=== PATIENT | female | born 1950 | race Caucasian/White ===

== ENCOUNTER → 2018-08-01 14:00 | Outpatient (CLI) | payer MEDICARE, SELFPAY ==
--- NOTE | 2018-08-01 | DI.MG.S_ITS ---
BILATERAL DIGITAL SCREENING MAMMOGRAM 3D/2D WITH CAD: 08/01/2018 CLINICAL: Routine screening. Family history of breast cancer. Comparison is made to exams dated: 07/23/2017 mammogram, 06/26/2016 mammogram, and 05/04/2015 mammogram - [facility]. The tissue of both breasts is heterogeneously dense. This may lower the sensitivity of mammography. Current study was also evaluated with a Computer Aided Detection (CAD) system. No significant masses, calcifications, or other findings are seen in either breast. There has been no significant interval change. IMPRESSION: NEGATIVE There is no mammographic evidence of malignancy. A 1 year screening mammogram is recommended. This exam was interpreted at Station ID: [id number]. NOTE: For mammograms, a report in lay terms will be sent to the patient. Approximately 15% of breast malignancies will not be visualized mammographically. In the management of a palpable breast mass, a negative mammogram must not discourage biopsy of a clinically suspicious lesion. Electronically Signed By: Marsha cordero/denis:08/01/2018 15:43:27 letter sent: Normal Exam ACR BI-RADS Category 1: Negative 3341F
== END ==
PROVIDERS: PCP Family Medicine; Visit Provider Family Medicine
DX: Z12.31 Encounter for screening mammogram for malignant neoplasm of breast (principal); Z80.3 Family history of malignant neoplasm of breast
CPT/HCPCS: 77063; 77067

== ENCOUNTER → 2018-12-10 08:37 | Outpatient (CLI) | payer MEDICARE, SELFPAY ==
[2018-12-10 09:46] LABS: Add Manual Diff / Slide Review NO; Basophils Absolute Auto 0 /uL (0-100); Basophils Percent Auto 1.3 % (0-2); Eosinophils Absolute Auto 100 /uL (0-450); Hematocrit 40.4 % (36-46); Hemoglobin 13.5 g/dL (12.0-16.0); Lymphocytes Absolute Auto 1200 /uL (1100-4500); Lymphocytes Percent Auto 36.1 % (25-40); Mean Corpuscular HGB Conc 33.3 % (30-36); Mean Corpuscular Hemoglobin 30.1 PG (26-34); Mean Corpuscular Volume 90.3 fL (80-100); Monocytes Absolute Auto 300 /uL (0-900); Neutrophils Absolute Auto 1700 /uL (1500-7000); Neutrophils Percent Auto 50.6 % (50-75); Platelet Count 188 X10^3/uL (150-400); Red Blood Cell Count 4.48 X10^6/uL (4.0-5.2); Red Cell Distribution Width 13.3 % (11.6-14.8); White Blood Cell Count 3.3 X10^3/uL (4.5-11.0)
[2018-12-10 10:14] LABS: Alanine Aminotransferase 27 IU/L (9-52); Albumin 4.3 g/dL (3.5-5.0); Albumin Globulin Ratio 1.7 (1.0-2.8); Alkaline Phosphatase 63 U/L (38-126); Aspartate Aminotransferase 26 IU/L (14-36); BUN Creatinine Ratio 17.5 (6-22); Bilirubin Total 0.5 mg/dL (0.2-1.3); Blood Urea Nitrogen 14 mg/dL (7-17); Carbon Dioxide 29 mmol/L (22-32); Chloride 95 mmol/L (98-107); Cholesterol 222 mg/dL (140-199); Estimated Glomerular Filt Rate > 60.0 mL/min (>60); Globulin 2.5 g/dL (1.7-4.1); Glucose 82 mg/dL (80-110); HDL Cholesterol 71 mg/dL (40-60); HEMOLYSIS < 15 (0-50); LDL Cholesterol Calculated 135 mg/dL (<100); Potassium 3.2 mmol/L (3.4-5.1); Sodium 134 mmol/L (137-145); Total Protein 6.8 g/dL (6.3-8.2); Triglycerides 79 mg/dL (35-150)
[2018-12-10 10:44] LABS: Thyroid Stimulating Hormone 1.35 uIU/mL (0.47-4.68)
== END ==
PROVIDERS: PCP Family Medicine; Visit Provider Family Medicine
DX: I10 Essential (primary) hypertension (principal); Z13.220 Encounter for screening for lipoid disorders; Z13.29 Encounter for screening for other suspected endocrine disorder; Z51.81 Encounter for therapeutic drug level monitoring
CPT/HCPCS: 36415; 80053; 80061; 84443; 85025

== ENCOUNTER → 2019-08-04 11:42 | Outpatient (CLI) | payer MEDICARE, SELFPAY ==
--- NOTE | 2019-08-04 | DI.MG.S_ITS ---
BILATERAL DIGITAL SCREENING MAMMOGRAM 3D/2D WITH CAD: 08/04/2019 CLINICAL: Routine screening. Family history of breast cancer. Comparison is made to exams dated: 08/01/2018 mammogram, 07/23/2017 mammogram, and 06/26/2016 mammogram - [facility]. The tissue of both breasts is heterogeneously dense. This may lower the sensitivity of mammography. Current study was also evaluated with a Computer Aided Detection (CAD) system. No significant masses, calcifications, or other findings are seen in either breast. There has been no significant interval change. IMPRESSION: NEGATIVE There is no mammographic evidence of malignancy. A 1 year screening mammogram is recommended. This exam was interpreted at Station ID: [id number]. NOTE: For mammograms, a report in lay terms will be sent to the patient. Approximately 15% of breast malignancies will not be visualized mammographically. In the management of a palpable breast mass, a negative mammogram must not discourage biopsy of a clinically suspicious lesion. Electronically Signed By: Artemio faria/denis:08/04/2019 13:53:32 letter sent: Normal Exam ACR BI-RADS Category 1: Negative 3341F
== END ==
PROVIDERS: PCP Family Medicine; Visit Provider Family Medicine
DX: Z12.31 Encounter for screening mammogram for malignant neoplasm of breast (principal); Z80.3 Family history of malignant neoplasm of breast
CPT/HCPCS: 77063; 77067

== ENCOUNTER → 2019-12-30 09:21 | Outpatient (CLI) | payer MEDICARE, SELFPAY ==
[2019-12-30 09:47] LABS: Add Manual Diff / Slide Review NO; Basophils Absolute Auto 0 /uL (0-100); Basophils Percent Auto 1.2 % (0-2); Eosinophils Absolute Auto 100 /uL (0-450); Eosinophils Percent Auto 2.4 % (2-4); Hematocrit 42.3 % (36-46); Hemoglobin 14.4 g/dL (12.0-16.0); Lymphocytes Absolute Auto 1000 /uL (1100-4500); Lymphocytes Percent Auto 25.3 % (25-40); Mean Corpuscular Hemoglobin 29.9 PG (26-34); Mean Corpuscular Volume 88.1 fL (80-100); Monocytes Absolute Auto 400 /uL (0-900); Monocytes Percent Auto 9.4 % (3-14); Neutrophils Absolute Auto 2500 /uL (1500-7000); Neutrophils Percent Auto 61.7 % (50-75); Platelet Count 205 X10^3/uL (150-400); White Blood Cell Count 4.1 X10^3/uL (4.5-11.0)
[2019-12-30 11:09] LABS: Alanine Aminotransferase 20 IU/L (<35); Albumin 4.6 g/dL (3.5-5.0); Albumin Globulin Ratio 1.6 (1.0-2.8); Alkaline Phosphatase 79 U/L (38-126); Aspartate Aminotransferase 28 IU/L (14-36); Bilirubin Total 0.5 mg/dL (0.2-1.3); Blood Urea Nitrogen 16 mg/dL (7-17); Calcium 10.1 mg/dL (8.4-10.2); Carbon Dioxide 30 mmol/L (22-32); Chloride 97 mmol/L (98-107); Estimated Glomerular Filt Rate > 60.0 mL/min (>60); Globulin 2.8 g/dL (1.7-4.1); Glucose 97 mg/dL (80-110); HEMOLYSIS < 15 (0-50); Potassium 3.6 mmol/L (3.4-5.1); Sodium 138 mmol/L (137-145); Total Protein 7.4 g/dL (6.3-8.2)
== END ==
PROVIDERS: PCP Family Medicine; Referring Provider Family Medicine; Visit Provider Family Medicine
DX: Z76.89 Persons encountering health services in other specified circumstances (principal); I10 Essential (primary) hypertension
CPT/HCPCS: 36415; 80053; 85025

== ENCOUNTER → 2020-07-27 09:33 | Outpatient (CLI) | payer MEDICARE, SELFPAY ==
[2020-07-27 10:29] LABS: Hemoglobin A1C% w Est Avg Glu 5.9 % (4.0-6.0)
[2020-07-27 10:31] LABS: Appearance Urine UA Clear; Color Urine UA YELLOW; Glucose Urine UA NEGATIVE (Negative); Protein Urine UA Negative (Negative)
[2020-07-27 10:32] LABS: Bilirubin Urine UA Negative (NEGATIVE); Ketones Urine UA NEGATIVE (NEGATIVE); Leukocyte Esterase Urine UA NEGATIVE (NEGATIVE); Nitrite Urine UA NEGATIVE (Negative); Occult Blood Urine UA TRACE-INTACT (Negative); Urobilinogen Urine UA Normal E.U./dL (0.2)
[2020-07-27 10:47] LABS: Alanine Aminotransferase 16 IU/L (<35); Albumin 4.4 g/dL (3.5-5.0); Albumin Globulin Ratio 1.6 (1.0-2.8); Alkaline Phosphatase 63 U/L (38-126); Aspartate Aminotransferase 25 IU/L (14-36); BUN Creatinine Ratio 24.4 (6-22); Bilirubin Total 0.7 mg/dL (0.2-1.3); Blood Urea Nitrogen 19 mg/dL (7-17); Calcium 9.6 mg/dL (8.4-10.2); Carbon Dioxide 32 mmol/L (22-32); Chloride 99 mmol/L (98-107); Estimated Glomerular Filt Rate > 60.0 mL/min (>60); Globulin 2.7 g/dL (1.7-4.1); Glucose 101 mg/dL (80-110); HEMOLYSIS < 15 (0-50); Potassium 3.9 mmol/L (3.4-5.1); Sodium 136 mmol/L (137-145); Total Protein 7.1 g/dL (6.3-8.2)
[2020-07-27 11:14] LABS: TSH w/ Reflex to FT4 1.22 uIU/mL (0.47-4.68)
== END ==
PROVIDERS: PCP Family Medicine; Referring Provider Family Medicine; Visit Provider Family Medicine
DX: E87.0 Hyperosmolality and hypernatremia (principal); I10 Essential (primary) hypertension; R73.03 Prediabetes
CPT/HCPCS: 36415; 80053; 81003; 83036; 84443

== ENCOUNTER → 2020-08-11 10:04 | Outpatient (CLI) | payer MEDICARE, SELFPAY ==
--- NOTE | 2020-08-11 | DI.MG.S_ITS ---
BILATERAL DIGITAL SCREENING MAMMOGRAM 3D/2D WITH CAD: 08/11/2020 CLINICAL: Routine screening. Family history of breast cancer. Comparison is made to exams dated: 08/01/2018 mammogram, 07/23/2017 mammogram, and 06/26/2016 mammogram - [facility]. The tissue of both breasts is heterogeneously dense. This may lower the sensitivity of mammography. Current study was also evaluated with a Computer Aided Detection (CAD) system. There is a stable benign amorphous calcification in the right breast at 12 o'clock posterior depth. No other significant masses, calcifications, or other findings are seen in either breast. IMPRESSION: BENIGN There is no mammographic evidence of malignancy. A 1 year screening mammogram is recommended. This exam was interpreted at Station ID: [id number]. NOTE: For mammograms, a report in lay terms will be sent to the patient. Approximately 15% of breast malignancies will not be visualized mammographically. In the management of a palpable breast mass, a negative mammogram must not discourage biopsy of a clinically suspicious lesion. Electronically Signed By: Saul Ramírez acr/:08/11/2020 11:08:13 letter sent: Normal Exam ACR BI-RADS Category 2: Benign Finding(s) 3342F
--- NOTE | 2020-08-11 10:05 | DI.US.S_ITS ---
PROCEDURE: US RENAL COMPLETE INDICATIONS: Surveillance right renal cyst TECHNIQUE: Real-time scanning was performed of the kidneys and bladder, with image documentation. COMPARISON: [facility], US, ABDOMEN COMPLETE, 11/28/2017, 8:41. FINDINGS: Kidneys: Kidneys are normal in size. Right kidney measures 10.4 cm long; left kidney measures 10.1 cm long. Right renal cortical thickness is 0.4 cm; left renal cortical thickness is 1.4 cm. Renal cortical echotexture is normal. No hydronephrosis or nephrolithiasis. No suspicious solid mass lesions. A simple appearing renal cyst is seen involving the inferior pole of the right kidney that measures 4.8 x 4.5 x 4.5 cm, which previously measured 4.4 x 3.7 x 4.5 cm. No suspicious features are seen. No abnormal vascularity. Bladder: Pre-void bladder volume is 194 mL. Post-void residual is 20 mL. Pre-void images demonstrate no intraluminal masses or stones. On pre-void images, both ureteral jets are noted with color Doppler interrogation. (Of note, ureteral jets may not be detectable in up to 25% of cases due to insufficient differences in specific gravity between ureteral and bladder urine). Miscellaneous: No free pelvic fluid. IMPRESSION: Mildly increased size of the simple appearing cyst at the inferior pole of the right kidney. No suspicious features are seen. Mild postvoid residual, 20 cc. Dictated by: Burak Doe M.D. on 08/11/2020 at 13:45 Approved by: Burak Doe M.D. on 08/11/2020 at 13:47
== END ==
PROVIDERS: PCP Family Medicine; Referring Provider Family Medicine; Visit Provider Family Medicine
DX: Z12.31 Encounter for screening mammogram for malignant neoplasm of breast (principal); N28.1 Cyst of kidney, acquired; Z80.3 Family history of malignant neoplasm of breast
CPT/HCPCS: 76770; 77063; 77067

== ENCOUNTER → 2021-07-31 09:49 | Outpatient (CLI) | payer MEDICARE, SELFPAY ==
[2021-07-31 11:35] LABS: Hemoglobin A1C% w Est Avg Glu 5.5 % (4.0-6.0)
[2021-07-31 12:04] LABS: Alanine Aminotransferase 15 IU/L (<35); Albumin 4.4 g/dL (3.5-5.0); Albumin Globulin Ratio 1.6 (1.0-2.8); Alkaline Phosphatase 55 U/L (38-126); Aspartate Aminotransferase 27 IU/L (14-36); BUN Creatinine Ratio 17.5 (6-22); Bilirubin Total 0.6 mg/dL (0.2-1.3); Blood Urea Nitrogen 14 mg/dL (7-17); Calcium 9.2 mg/dL (8.4-10.2); Carbon Dioxide 31 mmol/L (22-32); Chloride 101 mmol/L (98-107); Estimated Glomerular Filt Rate > 60.0 mL/min (>60); Globulin 2.8 g/dL (1.7-4.1); Glucose 93 mg/dL (80-110); HEMOLYSIS < 15 (0-50); Potassium 3.9 mmol/L (3.4-5.1); Sodium 137 mmol/L (137-145); Total Protein 7.2 g/dL (6.3-8.2)
== END ==
PROVIDERS: PCP Family Medicine; Referring Provider Family Medicine; Visit Provider Family Medicine
DX: R73.03 Prediabetes (principal); E87.6 Hypokalemia; I10 Essential (primary) hypertension
CPT/HCPCS: 36415; 80053; 83036

== ENCOUNTER → 2021-08-14 10:42 | Outpatient (CLI) | payer MEDICARE, SELFPAY ==
--- NOTE | 2021-08-14 | DI.MG.S_ITS ---
BILATERAL DIGITAL SCREENING MAMMOGRAM 3D/2D WITH CAD: 08/14/2021 Comparison is made to exams dated: 08/11/2020 mammogram, 08/04/2019 mammogram, and 08/01/2018 mammogram - [facility]. The tissue of both breasts is heterogeneously dense. This may lower the sensitivity of mammography. Current study was also evaluated with a Computer Aided Detection (CAD) system. No significant masses, calcifications, or other findings are seen in either breast. There has been no significant interval change. IMPRESSION: NEGATIVE There is no mammographic evidence of malignancy. A 1 year screening mammogram is recommended. This exam was interpreted at Station ID: [id number]. NOTE: For mammograms, a report in lay terms will be sent to the patient. Approximately 15% of breast malignancies will not be visualized mammographically. In the management of a palpable breast mass, a negative mammogram must not discourage biopsy of a clinically suspicious lesion. Electronically Signed By: Mckay Mckinney M.D. at/denis:08/14/2021 12:41:37 letter sent: Normal Exam ACR BI-RADS Category 1: Negative 3341F
== END ==
PROVIDERS: PCP Family Medicine; Referring Provider Family Medicine; Visit Provider Family Medicine
DX: Z12.31 Encounter for screening mammogram for malignant neoplasm of breast (principal)
CPT/HCPCS: 77063; 77067

== ENCOUNTER → 2021-12-18 09:20 | Outpatient (CLI) | payer MEDICARE, SELFPAY ==
[2021-12-18 10:41] LABS: COVID19 -Nasal RAPID Negative (Negative)
== END ==
PROVIDERS: PCP Family Medicine; Visit Provider Surgery
DX: Z01.812 Encounter for preprocedural laboratory examination (principal); Z20.822 Contact with and (suspected) exposure to COVID-19
CPT/HCPCS: 87635; C9803

== ENCOUNTER 2021-12-19 07:58 | Day surgery (SDC) | payer MEDICARE, SELFPAY ==
[2021-12-19 08:34] VITALS: BP 136/81; PULSE 110; RESP 16; TEMP 36.3; O2SAT 98; BMI 24.1
[2021-12-19] MEDS: LACTATED RINGERS 1,000 ML 200 ML IV (08:39)
--- NOTE | 2021-12-19 08:54 | PM.HP.1 ---
History of Present Illness History of Present Illness Date Patient Seen: 12/19/21 Time Patient Seen: 08:54 Chief complaint: SDC Narrative: The patient presents for colorectal screening. She has had a previous colonoscopy most recently 5 years ago she has a personal history of colonic polyps. No personal or family history of colon cancer. On further history denies any recent gastrointestinal symptoms. No nausea, vomiting, abdominal pain, loss of appetite, unexplained weight loss, change in bowel habits, diarrhea, constipation, melena, hematochezia, or bright red blood per rectum. Patient History Medical History Allergic conjunctivitis Borderline high cholesterol Hypernatremia Hypertension Hypokalemia Simple renal cyst Surgical History Status post hysterectomy with oophorectomy Family & Social History Family History Father Mental health disorder Stroke Grandfather Heart disease Diabetes mellitus Grandmother Cancer Social History: household members spouse Tobacco & Substance use: Smoking Status Never smoker alcohol intake never Substance Use Type does not use Meds Home Medications and Allergies Home Medications Medication Instructions Recorded Confirmed Type magnesium PO 12/30/19 11/30/21 History psyllium [Metamucil] PO 12/30/19 11/30/21 History flaxseed oil MISCELLANEOUS 07/27/20 11/30/21 History aspirin 81 mg tablet,delayed 81 mg PO DAILY 01/03/21 12/19/21 History release estradiol See Rx Instructions .ROUTE 09/05/21 12/19/21 Rx .COMPLEX #43 gram losartan 25 mg tablet 25 mg PO DAILY #90 tab 11/30/21 12/19/21 Rx turmeric 1,500 mg PO DAILY 11/30/21 11/30/21 History turmeric 400 mg capsule mg PO 11/30/21 11/30/21 History Allergies Allergy/AdvReac Type Severity Reaction Status Date / Time No Known Allergies Allergy Unknown Verified 12/19/21 08:12 [NO KNOWN ALLERGIES] Exam Vital Signs (past 8 hours): - 12/19/21 08:34 Temperature 97.4 F L Pulse Rate 110 H Respiratory Rate 16 Blood Pressure 136/81 Pulse Oximetry 98 Oxygen Delivery Method Room Air Narrative Exam Narrative: GENERAL: Thin woman apparent distress HEENT: No scleral icterus CV: Regular rate, no peripheral edema LUNGS: No increased work of breathing. Patient speaks in full sentences without oxygen support. ABDOMEN: Soft, non-tender, non-distended NEURO: Nonfocal, normal strength throughout, SKIN: Warm and dry Assessment & Plan Assessment and plan (1) Personal history of colonic polyps: Status: Acute Assessment & Plan narrative: The patient requires colorectal screening and colonoscopy is recommended. Technical details were discussed. Risks, benefits, alternatives explained. Risks including but not limited to myocardial infarction, aspiration, bleeding, pain, missed lesion, incomplete examination, need for further radiographic studies, colonic perforation, and need for major abdominal surgery were discussed. All questions were answered to their satisfaction, and they are in agreement with this plan. Time Spent With Patient Critical Care time: I spent a total of [] minutes of critical care time on this patient's care today; this time is exclusive of procedural time.
[2021-12-19] MEDS: fentaNYL 250 MCG/5 ML INJ IV (09:00)
[2021-12-19] MEDS: MIDAZOLAM 5 MG/5 ML VIAL IV (09:00)
--- NOTE | 2021-12-19 09:31 | PM.OP.COLON ---
Operative Date/Time/Diagnoses Date of procedure: 12/19/21 Time of procedure: 09:31 Pre-op diagnosis: PERSONAL HISTORY OF COLONIC POLYPS Post-op diagnosis: same Procedure & Clinicians Study performed: COLONOSCOPY Same procedure as scheduled: Yes Indications: PERSONAL HISTORY OF COLONIC POLYPS Surgeon: Chris Crump Procedure Notes Procedure in detail: MEDICATIONS: CONSCIOUS SEDATION USING 125MG IV MIDAZOLAM AND 5MCG IV OF FENTANYL THE HISTORY AND PHYSICAL WAS PERFORMED/UPDATED AND THE PATIENT IS ASA CLASS IS 2. THE PROCEDURE WAS DISCUSSED IN DETAIL WITH THE PATIENT. POTENTIAL RISKS COMPLICATIONS INCLUDING INFECTION, BLEEDING, MISSED DIAGNOSIS, PERFORATION, NEED FOR SURGERY, AND WERE EXPLAINED. THEIR QUESTIONS WERE ANSWERED AND INFORMED CONSENT WAS OBTAINED. PATIENT WAS BROUGHT TO THE PROCEDURE ROOM AND PLACED STANDARD MONITORING EQUIPMENT. THE PATIENT'S VITAL SIGNS WERE MONITORED CONTINUOUSLY THROUGHOUT THE ENTIRE PROCEDURE. PRIOR TO STARTING TIME-OUT WAS PERFORMED. THE PATIENT WAS PLACED IN THE LEFT LATERAL RECUMBENT POSITION. PROCEDURAL SEDATION WAS ADMINISTERED. EXAMINATION BEGAN WITH A THOROUGH INSPECTION OF THE PERIANAL AREA THERE WAS NO EVIDENCE OF FISSURES, FISTULAE, EXTERNAL HEMORRHOIDS OR CUTANEOUS MALIGNANCY. THE COLONOSCOPY SCOPE WAS THEN PLACED INTO THE ANAL CANAL AND WAS ADVANCED TO THE CECUM, WHICH WAS IDENTIFIED BY THE ILEOCECAL VALVE, THE APPENDICEAL ORIFICE AND THE CONFLUENCE OF THE TAENIA. THE SCOPE WAS THEN SLOWLY WITHDRAWN EXAMINING COLON THOROUGHLY IN ALL DIRECTIONS, IRRIGATING IT OF ANY RESIDUAL STOOL. FINDINGS 1. NO MASSES OR POLYPS 2. SIGMOID DIVERTICULOSIS THE PATIENT TOLERATED THE PROCEDURE WELL. THEY WILL BE DISCHARGED ONCE CRITERIA ARE MET. THE PREP WAS OF GOOD/EXCELLENT QUALITY. THE WITHDRAWL TIME WAS 7 MINUTES. THE SEDATION TIME WAS 26 MINUTES. Specimen(s): none sent Complications: none Impression: NORMAL COLONOSCOPY Post-procedure Recommendations: High fiber diet Plan for aftercare: NO NEED FOR FURTHER COLONOSCOPY Disposition: same day surgery
[2021-12-19 09:33] VITALS: BP 99/61; PULSE 64; RESP 12; TEMP 36.1; O2SAT 97
[2021-12-19 09:38] VITALS: BP 95/57; PULSE 62; RESP 15; O2SAT 97
[2021-12-19 09:43] VITALS: BP 96/59; PULSE 60; RESP 12; O2SAT 97
[2021-12-19 09:48] VITALS: BP 98/60; PULSE 62; RESP 15; O2SAT 97
[2021-12-19 10:08] VITALS: BP 105/60; PULSE 79; RESP 18; TEMP 36.6; O2SAT 99
--- NOTE | 2021-12-19 10:37 | SUR.PHASEII ---
Late entry: pt rwady to go, tolerated liquids and belly soft. pt left when ready and left in stable condition.
== END 2021-12-19 10:25 | disposition home or self-care (01) ==
PROVIDERS: PCP Family Medicine; Referring Provider Surgery; Visit Provider Surgery
PROC: 0DJD8ZZ Inspection of Lower Intestinal Tract, Via Natural or Artificial Opening Endoscopic (ICD-10-PCS; CPT 45378; principal; 2021-12-19 09:15)
DX: Z86.010 Personal history of colon polyps (principal); K57.30 Diverticulosis of large intestine without perforation or abscess without bleeding
CPT/HCPCS: G0105; 99152; 99153; J2250; J3010

== ENCOUNTER → 2022-08-01 08:27 | Outpatient (CLI) | payer MEDICARE, SELFPAY ==
[2022-08-01 09:19] LABS: Add Manual Diff / Slide Review NO; Basophils Absolute Auto 0 /uL (0-100); Eosinophils Absolute Auto 0 /uL (0-450); Hemoglobin 13.5 g/dL (12.0-16.0); Lymphocytes Absolute Auto 1000 /uL (1100-4500); Monocytes Absolute Auto 300 /uL (0-900); Neutrophils Absolute Auto 1800 /uL (1500-7000); White Blood Cell Count 3.2 X10^3/uL (4.5-11.0)
[2022-08-01 09:24] LABS: Alanine Aminotransferase 17 IU/L (<35); Albumin 3.9 g/dL (3.5-5.0); Albumin Globulin Ratio 1.6 (1.0-2.8); Alkaline Phosphatase 59 U/L (38-126); Aspartate Aminotransferase 23 IU/L (14-36); BUN Creatinine Ratio 16.3 (6-22); Bilirubin Total 0.7 mg/dL (0.2-1.3); Blood Urea Nitrogen 14 mg/dL (7-17); Carbon Dioxide 31 mmol/L (22-32); Chloride 99 mmol/L (98-107); Cholesterol 202 mg/dL (140-199); Estimated Glomerular Filt Rate > 60 mL/min (>60); Globulin 2.4 g/dL (1.7-4.1); Glucose 92 mg/dL (80-110); HDL Cholesterol 69 mg/dL (40-60); HEMOLYSIS < 15 (0-50); LDL Cholesterol Calculated 110 mg/dL (<100); Potassium 3.7 mmol/L (3.4-5.1); Sodium 136 mmol/L (137-145); Total Protein 6.3 g/dL (6.3-8.2); Triglycerides 115 mg/dL (35-150)
[2022-08-01 09:36] LABS: Hemoglobin A1C% w Est Avg Glu 5.9 % (4.0-6.0)
[2022-08-01 09:56] LABS: TSH w/ Reflex to FT4 1.71 uIU/mL (0.47-4.68)
[2022-08-01 10:34] LABS: Basophils Percent Auto 0.6 % (0-2); Eosinophils Percent Auto 1.3 % (2-4); Hematocrit 40.5 % (36-46); Lymphocytes Percent Auto 32.1 % (25-40); Mean Corpuscular HGB Conc 33.3 % (30-36); Mean Corpuscular Hemoglobin 30.5 PG (26-34); Mean Corpuscular Volume 91.7 fL (80-100); Monocytes Percent Auto 9.1 % (3-14); Neutrophils Percent Auto 56.9 % (50-75); Platelet Count 164 X10^3/uL (150-400); Red Blood Cell Count 4.42 X10^6/uL (4.0-5.2)
== END ==
PROVIDERS: PCP Family Medicine; Referring Provider Family Medicine; Visit Provider Family Medicine
DX: E78.9 Disorder of lipoprotein metabolism, unspecified (principal); R73.03 Prediabetes; E87.6 Hypokalemia; I10 Essential (primary) hypertension
CPT/HCPCS: 36415; 80053; 80061; 83036; 84443; 85025

== ENCOUNTER → 2022-08-15 11:38 | Outpatient (CLI) | payer MEDICARE, SELFPAY ==
--- NOTE | 2022-08-15 | DI.MG.S_ITS ---
BILATERAL DIGITAL SCREENING MAMMOGRAM 3D/2D WITH CAD: 08/15/2022 CLINICAL: Routine screening. Comparison is made to exams dated: 08/14/2021 mammogram, 08/11/2020 mammogram, and 08/04/2019 mammogram - [facility]. Both breasts are heterogeneously dense, which may obscure small masses (category c / 51-75% glandular tissue). Current study was also evaluated with a Computer Aided Detection (CAD) system. There are benign vascular calcifications in the right breast. No significant masses, calcifications, or other findings are seen in either breast. There has been no significant interval change. IMPRESSION: BENIGN There is no mammographic evidence of malignancy. A 1 year screening mammogram is recommended. Based on the Tyrer Cuzick model (a risk assessment model) the patient's lifetime risk is 4.7% and her 10 year risk is 3.2%. According to the ACR, ACS, and NCCN guidelines, an annual breast MRI exam along with mammogram is recommended if the patient's lifetime risk is 20% or greater. This exam was interpreted at Station ID: [id number]. NOTE: For mammograms, a report in lay terms will be sent to the patient. Approximately 15% of breast malignancies will not be visualized mammographically. In the management of a palpable breast mass, a negative mammogram must not discourage biopsy of a clinically suspicious lesion. Electronically Signed By: Long rush/denis:08/15/2022 16:07:13 letter sent: Normal Exam ACR BI-RADS Category 2: Benign Finding(s) 3342F
== END ==
PROVIDERS: PCP Family Medicine; Referring Provider Family Medicine; Visit Provider Family Medicine
DX: Z12.31 Encounter for screening mammogram for malignant neoplasm of breast (principal)
CPT/HCPCS: 77063; 77067

== ENCOUNTER → 2023-02-08 10:39 | Outpatient (CLI) | payer MEDICARE, SELFPAY ==
[2023-02-08 11:46] LABS: Add Manual Diff / Slide Review NO; Basophils Absolute Auto 0 /uL (0-100); Basophils Percent Auto 0.7 % (0-2); Eosinophils Absolute Auto 100 /uL (0-450); Eosinophils Percent Auto 1.1 % (2-4); Hematocrit 40.4 % (36-46); Hemoglobin 13.7 g/dL (12.0-16.0); Lymphocytes Absolute Auto 1200 /uL (1100-4500); Lymphocytes Percent Auto 24.3 % (25-40); Mean Corpuscular Hemoglobin 30.9 PG (26-34); Monocytes Absolute Auto 400 /uL (0-900); Monocytes Percent Auto 7.4 % (3-14); Neutrophils Absolute Auto 3300 /uL (1500-7000); Neutrophils Percent Auto 66.5 % (50-75); Platelet Count 181 X10^3/uL (150-400); Red Blood Cell Count 4.44 X10^6/uL (4.0-5.2); Red Cell Distribution Width 13.4 % (11.6-14.8); White Blood Cell Count 4.9 X10^3/uL (4.5-11.0)
== END ==
PROVIDERS: PCP Family Medicine; Referring Provider Family Medicine; Visit Provider Family Medicine
DX: D70.9 Neutropenia, unspecified (principal)
CPT/HCPCS: 36415; 85025

== ENCOUNTER → 2023-02-21 13:43 | Outpatient (CLI) | payer MEDICARE, SELFPAY ==
--- NOTE | 2023-02-21 13:44 | DI.US.S_ITS ---
PROCEDURE: US RENAL COMPLETE INDICATIONS: Eval known kidney cyst TECHNIQUE: Real-time scanning was performed of the kidneys and bladder, with image documentation. COMPARISON: [facility], , RENAL COMPLETE, 08/11/2020, 10:17. FINDINGS: Kidneys: Kidneys are normal in size. Right kidney measures 9.8 cm long; left kidney measures 10.2 cm long. Right renal cortical thickness is 0.8 cm; left renal cortical thickness is 1.2 cm. Renal cortical echotexture is normal. No hydronephrosis or nephrolithiasis. No suspicious solid mass lesions. Previously described 4.8 x 4.5 x 4.5 cm simple cyst in right kidney now measures 4.3 x 4.7 x 4.7 cm in size. Bladder: Pre-void bladder volume is 391 mL. Post-void residual is 0 mL. Pre-void images demonstrate no intraluminal masses or stones. On pre-void images, bilateral ureteral jets are noted with color Doppler interrogation. (Of note, ureteral jets may not be detectable in up to 25% of cases due to insufficient differences in specific gravity between ureteral and bladder urine). Miscellaneous: No free pelvic fluid. IMPRESSION: 1. Simple cyst in right kidney as above, not significantly changed from previous study. No solid appearing renal lesion. No hydronephrosis. 2. Normal appearing urinary bladder. Dictated by: Thanh Jean M.D. on 02/21/2023 at 15:46 Approved by: Thanh Jean M.D. on 02/21/2023 at 15:49
--- NOTE | 2023-02-21 14:22 | DI.DEXA.S_ITS ---
Bone Density Report Name: BRENDAN CALDWELL Age: 72 Sex: Female Ethnicity: White Date of : 1950 Indication: postmenopausal; screening for osteoporosis; Referring Provider: SANJUANA MOCTEZUMA Study: Bone densitometry was performed. Exam Date: February 21, 2023 Accession number: [id number] Bone Density: Region BMD T-score Z-score Classification AP Spine(L1, L2, L4) 0.849 -1.7 0.5 Osteopenia Femoral Neck (Left) 0.678 -1.5 0.4 Osteopenia Total Hip (Left) 0.767 -1.4 0.2 Osteopenia Femoral Neck (Right) 0.628 -2.0 -0.1 Osteopenia Total Hip (Right) 0.760 -1.5 0.1 Osteopenia Total Hip Mean 0.763 -1.5 0.2 Osteopenia World Health Organization criteria for BMD impression classify patients as: Normal (T-score at or above -1.0), Osteopenia (T-score between -1.0 and -2.5), or Osteoporosis (T-score at or below -2.5). 10-year Fracture Risk(1): Major Osteoporotic Fracture 11% Hip Fracture 2.5% Reported Risk Factors: [place] (), Neck BMD=0.628, BMI=22.7 (1) FRAX(R) Version 3.08. Fracture probability calculated for an untreated patient. Fracture probability may be lower if the patient has received treatment. Previous Exams: -- Region Exam Age BMD T-score BMD Change BMD Change Date g/cm2 vs Baseline vs Previous -- AP Spine (L1-L2,L4) 02/21/2023 72 0.849 -1.7 -0.204 (-19.4%)# -0.204 (-19.4%)# 11/28/2016 66 1.054 0.2 Total Hip(Left) 02/21/2023 72 0.767 -1.4 -0.137 (-15.1%)# -0.137 (-15.1%)# 11/28/2016 66 0.904 -0.3 Total Hip(Right) 02/21/2023 72 0.760 -1.5 -0.110 (-12.6%)# -0.110 (-12.6%)# 11/28/2016 66 0.869 -0.6 -- *Denotes significance at 95% confidence level, LSC for AP Spine = 0.022 g/cm2, LSC for Total Hip = 0.027 g/cm2 # Denotes dissimilar scan types or analysis methods Impression: The patient has low bone mass, based on the Right Femoral Neck T-score. The patient has an estimated ten-year risk of hip fracture of 2.5% and an estimated ten-year risk of major fracture of 11%, based on the WHO FRAX algorithm. No significant bone loss was observed. Discussion: BONE DENSITY IS LOW AT ONE OR MORE SKELETAL SITES. This patient's lowest T-score is low at one or more skeletal sites. It meets the World Health Organization's (WHO) criteria for ?low bone mass? (T-score between -1.0 and -2.5). The patient's 10-year risk of fracture as calculated by FRAX is less than the threshold where pharmacological therapy is recommended by the National Osteoporosis Foundation (NOF). However, all treatment decisions require clinical judgment and consideration of individual patient factors, including patient preferences, comorbidities, previous drug use, risk factors not captured in the FRAX model (e.g., frailty, falls, vitamin D deficiency, increased bone turnover, interval significant decline in bone density) and possible under or overestimation of fracture risk by FRAX. The patient should follow a healthful lifestyle (good nutrition with adequate calcium and vitamin D, and appropriate weight-bearing exercise). Follow-Up: Consider repeating this study in 2 to 3 years to reassess this patient's status, or sooner if there is some new clinical indication. Reported by: DAI QUEZADA M.D. on 02/21/2023 2:35:00 PM.
== END ==
PROVIDERS: PCP Family Medicine; Referring Provider Family Medicine; Visit Provider Family Medicine
DX: M85.851 Other specified disorders of bone density and structure, right thigh (principal); N28.1 Cyst of kidney, acquired; Z13.820 Encounter for screening for osteoporosis; Z78.0 Asymptomatic menopausal state
CPT/HCPCS: 76770; 77080

== ENCOUNTER → 2023-08-15 10:54 | Outpatient (CLI) | payer MEDICARE, SELFPAY ==
--- NOTE | 2023-08-15 | DI.MG.S_ITS ---
BILATERAL DIGITAL SCREENING MAMMOGRAM 3D/2D WITH CAD: 08/15/2023 CLINICAL: Routine screening. Family history of breast cancer. Comparison is made to exams dated: 08/15/2022 mammogram, 08/14/2021 mammogram, and 08/11/2020 mammogram - [facility]. Both breasts are heterogeneously dense, which may obscure small masses (category c / 51-75% glandular tissue). Current study was also evaluated with a Computer Aided Detection (CAD) system. No significant masses, calcifications, or other findings are seen in either breast. IMPRESSION: NEGATIVE There is no mammographic evidence of malignancy. A 1 year screening mammogram is recommended. Based on the Tyrer Cuzick model (a risk assessment model) the patient's lifetime risk is 4.4% and her 10 year risk is 3.3%. According to the ACR, ACS, and NCCN guidelines, an annual breast MRI exam along with mammogram is recommended if the patient's lifetime risk is 20% or greater. This exam was interpreted at Station ID: [id number]. NOTE: For mammograms, a report in lay terms will be sent to the patient. Approximately 15% of breast malignancies will not be visualized mammographically. In the management of a palpable breast mass, a negative mammogram must not discourage biopsy of a clinically suspicious lesion. Electronically Signed By: Alaina Armas M.D., PH.D eb/denis:08/15/2023 23:55:33 letter sent: Normal Exam ACR BI-RADS Category 1: Negative 3341F
== END ==
PROVIDERS: PCP Family Medicine; Referring Provider Family Medicine; Visit Provider Family Medicine
DX: Z12.31 Encounter for screening mammogram for malignant neoplasm of breast (principal); Z80.3 Family history of malignant neoplasm of breast
CPT/HCPCS: 77063; 77067

== ENCOUNTER → 2023-12-20 09:06 | Outpatient (CLI) | payer MEDICARE, SELFPAY ==
[2023-12-20 10:32] LABS: Alanine Aminotransferase 16 IU/L (<35); Albumin 3.9 g/dL (3.5-5.0); Albumin Globulin Ratio 1.5 (1.0-2.8); Alkaline Phosphatase 65 U/L (38-126); Aspartate Aminotransferase 22 IU/L (14-36); BUN Creatinine Ratio 18.2 (6-22); Bilirubin Total 0.8 mg/dL (0.2-1.3); Blood Urea Nitrogen 14 mg/dL (7-17); Calcium 9.6 mg/dL (8.4-10.2); Carbon Dioxide 32 mmol/L (22-32); Chloride 105 mmol/L (98-107); Cholesterol 229 mg/dL (140-199); Estimated Glomerular Filt Rate > 60 mL/min (>60); Globulin 2.6 g/dL (1.7-4.1); Glucose 95 mg/dL (80-110); HDL Cholesterol 77 mg/dL (40-60); HEMOLYSIS < 15 (0-50); LDL Cholesterol Calculated 132 mg/dL (<100); Potassium 4.9 mmol/L (3.4-5.1); Sodium 138 mmol/L (137-145); Total Protein 6.5 g/dL (6.3-8.2); Triglycerides 98 mg/dL (35-150)
[2023-12-20 11:04] LABS: TSH w/ Reflex to FT4 1.41 uIU/mL (0.47-4.68)
[2023-12-20 11:14] LABS: Hemoglobin A1C% w Est Avg Glu 5.7 % (4.0-6.0)
== END ==
PROVIDERS: PCP Family Medicine; Referring Provider Family Medicine; Visit Provider Family Medicine
DX: D70.9 Neutropenia, unspecified (principal); R73.03 Prediabetes; I10 Essential (primary) hypertension; E87.6 Hypokalemia
CPT/HCPCS: 36415; 80053; 80061; 83036; 84443

== ENCOUNTER → 2024-01-23 09:38 | Outpatient (CLI) | payer MEDICARE, SELFPAY | LOC: CAR 09:41 | PROVIDERS: PCP Family Medicine; Referring Provider Family Medicine; Visit Provider Family Medicine | DX: R55 Syncope and collapse (principal) | CPT/HCPCS: 93246 ==

== ENCOUNTER → 2024-02-19 07:37 | Outpatient (CLI) | payer MEDICARE, SELFPAY ==
--- NOTE | 2024-02-19 08:22 | DI.NM.S_ITS ---
DATE OF SERVICE: 02/19/2024 Procedure: Exercise treadmill stress testing without imaging. Ordering Provider: Jn Fischer DO Indications: The patient is a 73-year-old hypertensive female with episodes of flushing and near syncope. Findings: 1. The patient was able to exercise for 9 minutes and 4 seconds on a standard Herb protocol suggesting excellent exercise capacity with an KAMINI of -64%, achieving 10.1 METS. 2. She had a slightly accelerated heart rate response to exercise with a resting heart rate of 67 BPM increasing to 130 BPM after 3 minutes of exercise, achieving a maximum heart rate of 178 BPM (121% of her predicted maximum). She had a normal blood pressure response. 3. She had no chest discomfort or other anginal symptoms. 4. Her resting ECG shows sinus rhythm with normal ST segments. There are no significant ST-segment shifts with exercise although considerable motion artifact makes assessment challenging. There were no arrhythmias except for rare isolated PACs in recovery. Impression: 1. Normal exercise treadmill stress test for ischemia. 2. Excellent exercise capacity without angina, although with a slightly accelerated heart rate response to exercise. She had rare PACs, but no other arrhythmias. dd: 02/19/2024 16:03:00 dt: DICTATING MD/COPIES TO: Donaldo Farr MD;
--- NOTE | 2024-02-28 10:41 | DI.NM.S_ITS ---
DATE OF SERVICE: 02/19/2024 PROCEDURE: Exercise treadmill stress testing without imaging. ORDERING PROVIDER: Jn Fischer DO INDICATIONS: The patient is a 73-year-old hypertensive female with episodes of flushing and near syncope. FINDINGS: 1. The patient was able to exercise for 9 minutes and 4 seconds on a standard Herb protocol suggesting excellent exercise capacity with an KAMINI of -64%, achieving 10.1 METS. 2. She had a slightly accelerated heart rate response to exercise with a resting heart rate of 67 BPM increasing to 130 BPM after 3 minutes of exercise, achieving a maximum heart rate of 178 BPM (121% of her predicted maximum). She had a normal blood pressure response. 3. She had no chest discomfort or other anginal symptoms. 4. Her resting ECG showed sinus rhythm with normal ST segments. There are no significant ST-segment shifts with exercise, although with considerable motion artifact that makes assessment challenging. There were no arrhythmias except for rare isolated PACs in recovery. IMPRESSION: 1. Normal exercise treadmill stress test for ischemia. 2. Excellent exercise capacity without angina, although with a slightly accelerated heart rate response to exercise. She had rare PACs, but no other arrhythmias. Caroline Bryant - MONALISA/chelly/AY doc#: [id number]/job#: [id number] dd: 02/19/2024 16:03:00 dt: 02/19/2024 21:06:00 DICTATING /COPIES TO: Donaldo Farr MD; Jn Fischer DO COPIES MNE: CHAD;
== END ==
PROVIDERS: PCP Family Medicine; Referring Provider Family Medicine; Visit Provider Family Medicine
DX: R55 Syncope and collapse (principal); T73.3XXA Exhaustion due to excessive exertion, initial encounter; I10 Essential (primary) hypertension
CPT/HCPCS: 93017

== ENCOUNTER → 2024-08-20 12:42 | Outpatient (CLI) | payer MEDICARE, SELFPAY ==
--- NOTE | 2024-08-20 12:43 | DI.MG.S_ITS ---
BILATERAL DIGITAL SCREENING MAMMOGRAM 3D/2D WITH CAD: 08/20/2024 CLINICAL: Routine screening. Family history of breast cancer. Comparison is made to exams dated: 08/15/2023 mammogram, 08/15/2022 mammogram, and 08/14/2021 mammogram - [facility]. The breasts are heterogeneously dense, which may obscure small masses (category c / 51-75% glandular tissue). Current study was also evaluated with a Computer Aided Detection (CAD) system. There are benign vascular calcifications in the right breast. No significant masses, calcifications, or other findings are seen in either breast. There has been no significant interval change. IMPRESSION: BENIGN There is no mammographic evidence of malignancy. A 1 year screening mammogram is recommended. Based on the Tyrer Cuzick model (a risk assessment model) the patient's lifetime risk is 4.2% and her 10 year risk is 3.4%. According to the ACR, ACS, and NCCN guidelines, an annual breast MRI exam along with mammogram is recommended if the patient's lifetime risk is 20% or greater. This exam was interpreted at Station ID: [id number]. NOTE: For mammograms, a report in lay terms will be sent to the patient. Approximately 15% of breast malignancies will not be visualized mammographically. In the management of a palpable breast mass, a negative mammogram must not discourage biopsy of a clinically suspicious lesion. Electronically Signed By: Marsha cordero/denis:08/20/2024 15:57:59 letter sent: Normal Exam ACR BI-RADS Category 2: Benign
== END ==
PROVIDERS: PCP Family Medicine; Referring Provider Family Medicine; Visit Provider Family Medicine
DX: Z12.31 Encounter for screening mammogram for malignant neoplasm of breast (principal); Z80.3 Family history of malignant neoplasm of breast; R92.333 Mammographic heterogeneous density, bilateral breasts
CPT/HCPCS: 77063; 77067

== ENCOUNTER → 2024-09-03 08:50 | Outpatient (CLI) | payer MEDICARE, SELFPAY ==
[2024-09-03 09:10] LABS: Add Manual Diff / Slide Review NO; Basophils Absolute Auto 0 /uL (0-100); Basophils Percent Auto 0.8 % (0-2); Eosinophils Absolute Auto 0 /uL (0-450); Eosinophils Percent Auto 0.7 % (2-4); Hematocrit 41.3 % (36-46); Lymphocytes Absolute Auto 600 /uL (1100-4500); Lymphocytes Percent Auto 19.8 % (25-40); Mean Corpuscular HGB Conc 33.9 % (30-36); Mean Corpuscular Volume 91.2 fL (80-100); Monocytes Absolute Auto 300 /uL (0-900); Monocytes Percent Auto 11.3 % (3-14); Neutrophils Absolute Auto 1900 /uL (1500-7000); Neutrophils Percent Auto 67.4 % (50-75); Platelet Count 154 X10^3/uL (150-400); Red Blood Cell Count 4.52 X10^6/uL (4.0-5.2); Red Cell Distribution Width 13.7 % (11.6-14.8); White Blood Cell Count 2.9 X10^3/uL (4.5-11.0)
[2024-09-03 09:34] LABS: Alanine Aminotransferase 24 IU/L (<35); Albumin 4.5 g/dL (3.5-5.0); Albumin Globulin Ratio 1.7 (1.0-2.8); Alkaline Phosphatase 72 U/L (38-126); Aspartate Aminotransferase 35 IU/L (14-36); Bilirubin Total 0.6 mg/dL (0.2-1.3); Blood Urea Nitrogen 9 mg/dL (7-17); Calcium 9.1 mg/dL (8.4-10.2); Carbon Dioxide 29 mmol/L (22-32); Chloride 97 mmol/L (98-107); Cholesterol 230 mg/dL (140-199); Estimated Glomerular Filt Rate > 60 mL/min (>60); Globulin 2.6 g/dL (1.7-4.1); Glucose 92 mg/dL (80-110); HDL Cholesterol 87 mg/dL (40-60); HEMOLYSIS < 15 (0-50); LDL Cholesterol Calculated 122 mg/dL (<100); Potassium 4.2 mmol/L (3.4-5.1); Sodium 132 mmol/L (137-145); Total Protein 7.1 g/dL (6.3-8.2); Triglycerides 103 mg/dL (35-150)
[2024-09-03 09:46] LABS: Hemoglobin A1C% w Est Avg Glu 5.6 % (4.0-6.0)
== END ==
LOC: LAB 08:52
PROVIDERS: PCP Family Medicine; Referring Provider Family Medicine; Visit Provider Family Medicine
DX: R73.03 Prediabetes (principal); E78.9 Disorder of lipoprotein metabolism, unspecified; D70.9 Neutropenia, unspecified; I10 Essential (primary) hypertension; E87.6 Hypokalemia
CPT/HCPCS: 36415; 80053; 80061; 83036; 85025